=== PATIENT | female | born 1985 ===

== ENCOUNTER 2017-09-02 01:59 | Emergency (ER) | payer SELFPAY ==
[2017-09-02 02:24] VITALS: BP 107/65; PULSE 72; RESP 16; TEMP 98.8; O2SAT 99
--- NOTE | 2017-09-02 02:54 | ED PDOC ---
HPI: Back Time Seen by Provider: 09/02/17 02:30 Chief Complaint (Nursing): Back Pain Chief Complaint (Provider): Left Sided Flank Pain History Per: Patient History/Exam Limitations: no limitations Onset/Duration Of Symptoms: Days (1 day ago) Current Symptoms Are (Timing): Constant Additional Complaint(s): 31 y/o female with a history of kidney stones and a cholecystectomy, presents to the ED complaining of left sided flank pain, radiating to the left groin, onset of 1 day ago. Patient also complains of experiencing urinary difficulty for roughly one week, but denies nausea, vomiting, or diarrhea. Of note, patient reports of taking Tylenol for pain. Past Medical History Reviewed: Historical Data, Nursing Documentation, Vital Signs Vital Signs: Last Vital Signs Temp 98.8 F 09/02/17 02:15 Pulse 72 09/02/17 02:15 Resp 16 09/02/17 02:15 BP 107/65 09/02/17 02:15 Pulse Ox 99 09/02/17 02:15 - Medical History PMH: Denies: Chronic Kidney Disease Other PMH: kidney stones - Surgical History Surgical History: Cholecystectomy - Family History Family History: States: Unknown Family Hx - Social History Current smoker - smoking cessation education provided: No Ex-Smoker (has not smoked in the last 12 months): No Alcohol: None Drugs: Denies - Home Medications Home Medications: Ambulatory Orders Medication Instructions Recorded Acetaminophen with Codeine 1 each PO Q4 PRN #0 tablet 10/12/15 [Tylenol with Codeine #3 Tablet] Ciprofloxacin HCl [Cipro] 500 mg PO BID #0 tablet 10/12/15 Ciprofloxacin HCl [Cipro] 500 mg PO BID #14 tablet 09/02/17 Tamsulosin [Flomax] 0.4 mg PO DAILY #14 cap 09/02/17 - Allergies Allergies/Adverse Reactions: Allergies Allergy/AdvReac Type Severity Reaction Status Date / Time No Known Allergies Allergy Verified 10/11/15 22:38 Review of Systems ROS Statement: Except As Marked, All Systems Reviewed And Found Negative Gastrointestinal: Negative for: Nausea, Vomiting, Diarrhea Genitourinary Female: Positive for: Dysuria Musculoskeletal: Positive for: Back Pain (left flank pain that radiates to left groin) Physical Exam - Reviewed Nursing Documentation Reviewed: Yes Vital Signs Reviewed: Yes - Physical Exam Appears: Positive for: Non-toxic, Uncomfortable. Negative for: No Acute Distress Head Exam: Positive for: ATRAUMATIC Skin: Positive for: Normal Color, Warm Eye Exam: Positive for: Normal appearance, EOMI, PERRL ENT: Positive for: Normal ENT Inspection Neck: Positive for: Normal, Painless ROM, Supple Cardiovascular/Chest: Positive for: Regular Rate, Rhythm. Negative for: Murmur Respiratory: Positive for: Normal Breath Sounds. Negative for: Respiratory Distress Gastrointestinal/Abdominal: Positive for: Normal Exam, Soft. Negative for: Tenderness Back: Positive for: Normal Inspection. Negative for: L CVA Tenderness, R CVA Tenderness Extremity: Positive for: Normal ROM. Negative for: Pedal Edema, Deformity Neurologic/Psych: Positive for: Alert, Oriented. Negative for: Motor/Sensory Deficits - Laboratory Results Result Diagrams: 09/02/17 03:08 09/02/17 03:08 - ECG O2 Sat by Pulse Oximetry: 99 (RA) Pulse Ox Interpretation: Normal - Progress Re-evaluation Time: 04:45 Condition: Re-examined, Improved Medical Decision Making Medical Decision Making: Time: --02:44 Impression: --Left Flank Pain with Dysuria Differential: --UTI vs Kidney Stones Plan: --CT ABD & Pelvis W/O PO Contrast --Labs --ED Urine Dip --ED Urine --BLood Culture --Urine Culture Reassess --04:37 EXAM:CT Abdomen and Pelvis Without Intravenous Contrast FINDINGS: Lower thorax: No acute findings. ABDOMEN: Liver: Unremarkable. Gallbladder and bile ducts: There has been a cholecystectomy. No ductal dilation. Pancreas: Unremarkable. No ductal dilation. Spleen: Unremarkable. No splenomegaly. Adrenals: Unremarkable. No mass. Kidneys and ureters: There are multiple bilateral renal collecting system calcifications. There is mild left hydronephrosis and hydroureter. The left ureter is thickened. No definite distal ureteral stones identified. Diagnostic considerations include a recently passed stone or non-opaque stone. Stomach and bowel: Unremarkable. No obstruction. No mucosal thickening. Appendix: A normal appendix is identified. PELVIS: Bladder: Unremarkable. No stones. Reproductive: Unremarkable as visualized. ABDOMEN and PELVIS: Intraperitoneal space: Unremarkable. No free air. No significant fluid collection. Bones/joints: No acute fracture. No dislocation. Soft tissues: Unremarkable. Vasculature: Unremarkable. No abdominal aortic aneurysm. Lymph nodes: Unremarkable. No enlarged lymph nodes. IMPRESSION: Nephrolithiasis. Mild left hydroureteronephrosis. No definite distal ureteral stone.Diagnostic considerations include a recently passed stone or non-opaque stone. Thank you for allowing us to participate in the care of your patient. Scribe Attestation: Documented by Robert Joe acting as a scribe for Clair Fregoso MD Disposition - Clinical Impression Clinical Impression: Nephrolithiasis, UTI (urinary tract infection) - Patient ED Disposition Is Patient to be Admitted: No Doctor Will See Patient In The: Office Counseled Patient/Family Regarding: Studies Performed, Diagnosis, Need For Followup - Disposition Referrals: Carlos Randall Jr., MD [Staff Provider] - Disposition: Routine/Home Disposition Time: 04:46 Condition: GOOD Additional Instructions: Return for worsening. Follow up with your PCP in 2 days. Take your medications as instructed. i Prescriptions: Ciprofloxacin HCl [Cipro] 500 mg PO BID #14 tablet Tamsulosin [Flomax] 0.4 mg PO DAILY #14 cap Instructions: Kidney Stones (ED), Urinary Tract Infection in Women (ED) Forms: [employer] (Bahamian) Print Language: MONGOLIAN
[2017-09-02 03:15] LABS: BASO % 0.4 % (0.0-2.0); EOS # 0.1 K/uL (0.0-0.7); EOS % 0.8 % (0.0-4.0); HEMOGLOBIN 13.1 g/dL (12.0-16.0); LYMPH # 1.5 K/uL (1.0-4.3); LYMPH % 17.7 % (20.0-40.0); MEAN CELL VOLUME 87.7 fl (81.0-99.0); MEAN CORPUSCULAR HEMOGLOBIN 30.1 pg (27.0-31.0); MEAN CORPUSCULAR HGB CONC 34.3 g/dL (33.0-37.0); MEAN PLATELET VOLUME 10.2 fl (7.2-11.7); MONO # 0.5 K/uL (0.0-0.8); MONO % 6.3 % (0.0-10.0); NEUT # 6.3 K/uL (1.8-7.0); NEUT % 74.8 % (50.0-75.0); NRBC % 0.1 % (0.0-0.0); RBC 4.36 Mil/uL (3.80-5.20); RED CELL DISTRIBUTION WIDTH 13.3 % (11.5-14.5); WHITE BLOOD COUNT 8.5 K/uL (4.8-10.8)
[2017-09-02 03:37] LABS: BLOOD UREA NITROGEN 9 mg/dl (7-17); CALCIUM 9.4 mg/dL (8.4-10.2); GFR AFRICAN-AMERICAN > 60; GFR NON-AFRICAN AMERICAN > 60
--- NOTE | 2017-09-02 13:15 | CT ---
PROCEDURE: CT Abdomen and Pelvis without intravenous contrast HISTORY: left flank pain COMPARISON: 10/12/2015 TECHNIQUE: Without contrast.. Contrast Dose: 0 Radiation dose: Total exam DLP = 446.89 mGy-cm. This CT exam was performed using one or more of the following dose reduction techniques: Automated exposure control, adjustment of the mA and/or kV according to patient size, and/or use of iterative reconstruction technique. FINDINGS: LOWER THORAX: Unremarkable. LIVER: Unremarkable. No gross lesion or ductal dilatation. GALLBLADDER AND BILE DUCTS: Status post cholecystectomy PANCREAS: Unremarkable. No gross lesion or ductal dilatation. SPLEEN: Unremarkable. ADRENALS: Unremarkable. No mass. KIDNEYS AND URETERS: Mild left hydronephrosis and hydroureter. Several small nonobstructing left renal calculi, largest 5 mm in the upper pole. No ureteral calculus identified. There is no dilatation of the distal left ureter. There is no right hydronephrosis or hydroureter. No renal mass. VASCULATURE: Unremarkable. No aortic aneurysm. BOWEL: Unremarkable. No obstruction. No gross mural thickening. APPENDIX: Unremarkable. Normal appendix. PERITONEUM: Unremarkable. No free fluid. No free air. LYMPH NODES: Unremarkable. No enlarged lymph nodes. BLADDER: Unremarkable. REPRODUCTIVE: Unremarkable uterus. There is a small cystic mass along the right lateral fascia inferior to the cecum and appendix, measuring approximately 1.8 cm in diameter. This does not appear to represent the ovary. The ovary is seen separately common medial and posterior to this mass. It is not evident on prior CT of 10/12/2015. Significance uncertain. Consider evaluation with pelvic ultrasound. BONES: No acute fracture. OTHER FINDINGS: None. IMPRESSION: Mild left hydroureteronephrosis without evidence of obstructing calculus. Several nonobstructing small left renal calculi. Incidental 1.8 cm fluid density mass, likely cystic, along right lateral pelvic wall. Uncertain significance. Recommend pelvic ultrasound examination for correlation. No other significant abnormality is identified.
== END 2017-09-02 05:34 | disposition home or self-care (01) ==
LOC: H.ER 01:59
DX: N20.0 Calculus of kidney (principal); N39.0 Urinary tract infection, site not specified; Z90.49 Acquired absence of other specified parts of digestive tract
CPT/HCPCS: 74176; 80048; 81025; 85025; 87040; 87086; 87181; 96374; 99282; J1885

== ENCOUNTER 2017-12-22 15:41 | Emergency (ER) | payer OTHER ==
[2017-12-22 15:51] VITALS: O2SAT 100
--- NOTE | 2017-12-22 17:26 | ED PDOC ---
HPI: Back Time Seen by Provider: 12/22/17 16:15 Chief Complaint (Nursing): Back Pain Chief Complaint (Provider): Back pain History Per: Patient History/Exam Limitations: no limitations Onset/Duration Of Symptoms: Days (1) Current Symptoms Are (Timing): Still Present Quality Of Discomfort: "Pain" Previous Symptoms: None Associated Symptoms: None Additional Complaint(s): 32yo female with no past medical history, presents to ER with complaints of upper back pain and bilateral posterior shoulder pain since last night. Patient states she wasn't engaged in any strenuous activities during onset of pain. She denies any history of falls, trauma, or prior back injuries as well. Patient states she took 2 tablets of Advil at 8AM today with no relief of symptoms. She describes the discomfort as a cramping sensation, rated 6/10. Otherwise: (-) paresthesias, (-) weakness, (-) acute bowel or bladder dysfunction, (-) fever, ( -) headache, (-) chest pain, (-) weakness, (-) numbness, (-) vision change, (-) abdominal pain, (-) nausea (-) vomiting (-) neck pain/stiffness (-) SOB (-) prolonged immobility (-) calf tenderness. PMD: None Past Medical History Reviewed: Historical Data, Nursing Documentation, Vital Signs Vital Signs: Last Vital Signs Temp 98.6 F 12/22/17 15:50 Pulse 71 12/22/17 15:50 Resp 16 12/22/17 15:50 BP 100/66 12/22/17 15:50 Pulse Ox 100 12/22/17 15:50 - Medical History PMH: Kidney Stones Denies: Chronic Kidney Disease - Surgical History Surgical History: Cholecystectomy Other surgeries: procedures related to kidney stones - Family History Family History: States: Unknown Family Hx - Home Medications Home Medications: Ambulatory Orders Medication Instructions Recorded Acetaminophen with Codeine 1 each PO Q4 PRN #0 tablet 10/12/15 [Tylenol with Codeine #3 Tablet] Ciprofloxacin HCl [Cipro] 500 mg PO BID #0 tablet 10/12/15 Ciprofloxacin HCl [Cipro] 500 mg PO BID #14 tablet 09/02/17 Tamsulosin [Flomax] 0.4 mg PO DAILY #14 cap 09/02/17 Cyclobenzaprine [Cyclobenzaprine 10 mg PO Q8 #12 tab 12/22/17 HCl] Naproxen 500 mg PO Q12 #20 tab 12/22/17 - Allergies Allergies/Adverse Reactions: Allergies Allergy/AdvReac Type Severity Reaction Status Date / Time No Known Allergies Allergy Verified 10/11/15 22:38 Review of Systems ROS Statement: Except As Marked, All Systems Reviewed And Found Negative Constitutional: Negative for: Fever, Chills Cardiovascular: Negative for: Chest Pain Respiratory: Negative for: Shortness of Breath Gastrointestinal: Negative for: Vomiting, Abdominal Pain, Diarrhea Genitourinary Female: Negative for: Dysuria, Hematuria Musculoskeletal: Positive for: Back Pain Physical Exam - Reviewed Nursing Documentation Reviewed: Yes Vital Signs Reviewed: Yes - Physical Exam Comments: GENERAL APPEARANCE: Patient is awake, alert, oriented x 3, in no acute distress. Ambulatory in ED without difficulty. SKIN: Warm, dry; (-) cyanosis. EYES: (-) conjunctival pallor. ENMT: Mucous membranes moist. Airway patent (-) stridor. Uvula midline. Pharynx : (-) erythema (-) hypertrophy (-) exudate NECK: Supple, FROM (-) tenderness, (-) stiffness, (-) lymphadenopathy (-) rigidity. CHEST AND RESPIRATORY: (-) rales, (-) rhonchi, (-) wheezes; breath sounds equal bilaterally. Speaking in full sentences. HEART AND CARDIOVASCULAR: (-) irregularity; (-) murmur, (-) gallop. ABDOMEN AND GI: Soft; (-) tenderness (-) guarding (-) distention; (-) palpable mass. BACK: (+) bilateral parathoracic tenderness (-) direct bony tenderness, (-) deformity. Straight leg raising (-) bilaterally. EXTREMITIES: FROM bilateral upper extremities (-) tenderness (-) deformity. Distal pulses good bilaterally. NEURO AND PSYCH: Mental status as above. Intact sensation bilaterally; normal strength in extension of the knees, plantar and dorsiflexion of the toes. - Laboratory Results Urine POC: Negative Urine dip results: Positive for: Leukocyte Esterase (trace), Blood (trace). Negative for: Nitrate, Ketones, Glucose, Bilirubin, Protein - ECG ECG: Positive for: Interpreted By Me, Viewed By Me ECG Rhythm: Positive for: Sinus Rhythm. Negative for: ST/T Changes Interpretation Of ECG: No ectopy QTC 408 Rate: 66 O2 Sat by Pulse Oximetry: 100 (RA) Pulse Ox Interpretation: Normal Medical Decision Making Medical Decision Making: Impression: Musculoskeletal pain Plan: -- UDip -- Upreg -- EKG -- Flexeril 10mg PO (Patient has a ride home with significant other at bedside and will not be driving) -- Toradol 30mg IM -- Tramadol 50mg PO Time: 0 Based on UDip results, urinalysis ordered for further evaluation. Time: 1924 Urinalysis results reviewed and shows no acute findings. Patient states her pain has improved greatly. Patient remains awake, alert, oriented x 3 and is laying in bed comfortably. On exam, neck is supple, lungs are clear, abdomen is soft and non tender, heart is at regular rate and rhythm. Repeat neuro shows no focal findings. VSS, stable for discharge. Based on history, exam and urine results plan will be for discharge home with prescriptions for Naproxen and Flexeril. Advised to follow up with primary care physician/clinic in 1-2 days without fail. Advised to take medication as prescribed. Return to the emergency room at any time for any new or worsening symptoms. Patient states she fully agrees with and understands discharge instructions. States that she agrees with the plan and disposition. Verbalized and repeated discharge instructions and plan. I have given the patient opportunity to ask any additional questions. Scribe Attestation: Documented by Janet Waldron acting as a scribe for KISHAN Lees. Provider Attestation: All medical record entries made by the Scribe were at my direction and personally dictated by me. I have reviewed the chart and agree that the record accurately reflects my personal performance of the history, physical exam, medical decision making, and the department course for this patient. I have also personally directed, reviewed, and agree with the discharge instructions and disposition. Disposition - Clinical Impression Clinical Impression: Upper back pain, Muscle spasm of back - Patient ED Disposition Is Patient to be Admitted: No Counseled Patient/Family Regarding: Studies Performed, Diagnosis, Need For Followup, Rx Given - Disposition Referrals: [facility] [Outside] Disposition: Routine/Home Disposition Time: 19:38 Condition: STABLE Additional Instructions: FOLLOW UP WITH CLINIC IN 1-2 DAYS WITHOUT FAIL. RETURN TO ED WITH ANY NEW OR WORSENING SYMPTOMS. Prescriptions: Cyclobenzaprine [Cyclobenzaprine HCl] 10 mg PO Q8 #12 tab Naproxen 500 mg PO Q12 #20 tab Instructions: Upper Back Pain, Muscle Spasms (DC) Forms: [email or web address] (Danish) Print Language: SETSWANA - POA Present On Arrival: None Results - Lab Results Lab Results: 12/22/17 18:00 Urine Color Yellow Urine Clarity Cloudy Urine pH 7.0 Ur Specific Milligan 1.011 Urine Protein Negative Urine Glucose (UA) Neg Urine Ketones Negative Urine Blood Negative Urine Nitrate Negative Urine Bilirubin Negative Urine Urobilinogen 0.2-1.0 Ur Leukocyte Esterase Small Ur Squamous Epith Cells 1 Urine Yeast (Budding) Few H Urine Sperm (Auto) Rare H
[2017-12-22 19:13] LABS: SPERM URINE RARE /hpf; SQUAMOUS EPITHIAL 1 /hpf (0-5); URINE BILIRUBIN NEGATIVE (NEGATIVE); URINE BLOOD NEGATIVE (NEGATIVE); URINE CLARITY CLOUDY (Clear); URINE COLOR YELLOW (YELLOW); URINE GLUCOSE (UA) NEG (Normal); URINE LEUKOCYTE ESTERASE SMALL Leu/uL (Negative); URINE PROTEIN NEGATIVE (NEGATIVE); URINE UROBILINOGEN 0.2-1.0 mg/dL (0.2-1.0)
[2017-12-22 19:55] VITALS: BP 108/75; RESP 18; TEMP 98
--- NOTE | 2017-12-23 12:19 | CARD ---
APPROVED REPORT EKG Measurement Heart [id number] <Conclusion> Normal sinus rhythm Low voltage QRS Borderline ECG
[2017-12-24 23:45] VITALS: PULSE 66
== END 2017-12-22 19:55 | disposition home or self-care (01) ==
LOC: H.ER 15:41
DX: M54.9 Dorsalgia, unspecified (principal); B95.2 Enterococcus as the cause of diseases classified elsewhere; M25.511 Pain in right shoulder; M25.512 Pain in left shoulder
CPT/HCPCS: 81003; 81025; 87086; 87181; 93005; 96372; 99283; J1885

== ENCOUNTER 2018-01-12 10:03 | Emergency (ER) | payer OTHER ==
[2018-01-12 10:06] VITALS: BMI 26.7
[2018-01-12 10:07] VITALS: BP 101/66; PULSE 78; RESP 16; TEMP 98.7; O2SAT 98
--- NOTE | 2018-01-12 10:22 | ED PDOC ---
HPI: Headache Time Seen by Provider: 01/12/18 10:08 Chief Complaint (Nursing): Headache History Per: Patient Onset/Duration Of Symptoms: Days (7) Current Symptoms Are (Timing): Still Present Severity: Moderate Pain Scale Rating Of: 4 Quality: Aching Preceeding Symptoms: None Associated Symptoms: denies: Photophobia, Nausea Additional Complaint(s): Right sided earache x 1 week. Seen by PMD yesterday and started on Amoxil no improvement. Denies fever discharge. Denies head injury or stiff neck. Past Medical History Vital Signs: Last Vital Signs Temp 98.7 F 01/12/18 10:06 Pulse 78 01/12/18 10:06 Resp 16 01/12/18 10:06 BP 101/66 01/12/18 10:06 Pulse Ox 98 01/12/18 10:06 - Medical History PMH: Kidney Stones Denies: Chronic Kidney Disease - Surgical History Surgical History: Cholecystectomy - Family History Family History: States: Unknown Family Hx - Home Medications Home Medications: Ambulatory Orders Medication Instructions Recorded Acetaminophen with Codeine 1 each PO Q4 PRN #0 tablet 10/12/15 [Tylenol with Codeine #3 Tablet] Ciprofloxacin HCl [Cipro] 500 mg PO BID #0 tablet 10/12/15 Ciprofloxacin HCl [Cipro] 500 mg PO BID #14 tablet 09/02/17 Tamsulosin [Flomax] 0.4 mg PO DAILY #14 cap 09/02/17 Cyclobenzaprine [Cyclobenzaprine 10 mg PO Q8 #12 tab 12/22/17 HCl] Naproxen 500 mg PO Q12 #20 tab 12/22/17 Nitrofurantoin Macrocrystals 100 mg PO BID #14 cap 12/25/17 [Macrobid] Naproxen [Naprosyn] 500 mg PO Q12H #20 tab 01/12/18 - Allergies Allergies/Adverse Reactions: Allergies Allergy/AdvReac Type Severity Reaction Status Date / Time No Known Allergies Allergy Verified 10/11/15 22:38 Review of Systems Constitutional: Negative for: Fever ENT: Positive for: Ear Pain Neurological: Positive for: Headache Physical Exam - Physical Exam Appears: Positive for: Non-toxic, No Acute Distress Head Exam: Positive for: ATRAUMATIC, NORMAL INSPECTION, NORMOCEPHALIC Skin: Positive for: Normal Color, Warm, DRY ENT: Positive for: Normal ENT Inspection Neck: Positive for: Normal, Painless ROM, Supple Cardiovascular/Chest: Positive for: Regular Rate, Rhythm Respiratory: Positive for: CNT, Normal Breath Sounds Neurologic/Psych: Positive for: Alert, Oriented. Negative for: Motor/Sensory Deficits - ECG O2 Sat by Pulse Oximetry: 98 Disposition - Clinical Impression Clinical Impression: Headache, Ear infection - Patient ED Disposition Is Patient to be Admitted: No Counseled Patient/Family Regarding: Diagnosis, Need For Followup, Rx Given - Disposition Referrals: [facility] [Outside] Disposition: Routine/Home Disposition Time: 10:23 Condition: FAIR Prescriptions: Naproxen [Naprosyn] 500 mg PO Q12H #20 tab Instructions: Headache, Adult Print Language: DANISH
== END 2018-01-12 10:50 | disposition home or self-care (01) ==
LOC: H.ER 10:03
DX: R51 Headache (principal); H66.91 Otitis media, unspecified, right ear